=== PATIENT | female | born 1940 | race Hispanic/Latino ===

== ENCOUNTER 2018-10-17 10:50 | Emergency (ER) | payer MEDICARE ==
[2018-10-17] MEDS ORDERED: BOOSTRIX IM ONE (11:06)
[2018-10-17] MEDS ORDERED: TYLENOL PO ONE (11:06)
--- NOTE | 2018-10-17 11:07 | Emergency Department Report ---
ED Fall HPI - General Chief Complaint: Fall Stated Complaint: FALL Time Seen by Provider: 10/17/18 10:59 Source: patient, family, EMS (ems notes not available at time of chart dictation) Mode of arrival: Stretcher Limitations: Physical Limitation - History of Present Illness Initial Comments: This is a 78-year-old female, right-hand dominant, who presents to the emergency room after mechanical fall. She slipped, and landed on her nose, and twisted her left elbow, left bicep. She has a nasal abrasion, but otherwise no other supraclavicular injuries. She denies midline neck pain, midline chest pain, abdominal pain, weakness, numbness, shortness of breath. She does not believe she lost consciousness. She has left bicep pain, which is sharp and achy, increases with palpation, decreases with rest, does not radiate anywhere. MD Complaint: fall -: Sudden Fall From: standing When Fall Occurred: 1-3 hours SHOPPER Fall Witnessed: yes, by family Place Fall Occurred: home Loss of Consciousness: none Prolonged Down Time?: no Symptoms Prior to Fall: none Location: head, other Location - Extremities: Left: Arm Severity: moderate Quality: other Context: tripped/slipped Associated Symptoms: other (as per history of present illness). denies: neck pain, numbness, weakness, chest paint, shortness of breath, abdominal pain, hematuria, unable to walk, lightheaded, vertigo, confusion - Related Data Previous Rx's Medication Instructions Recorded Last Taken Type Acetaminophen [Tylenol] 325 mg PO Q4HR PRN #30 capsule 10/17/18 Unknown Rx Bacitracin Zinc Oint [Antibiotic 1 applicatio TP BID #1 tube 10/17/18 Unknown Rx Oint] Ibuprofen [Motrin] 400 mg PO Q8H PRN #30 tablet 10/17/18 Unknown Rx Allergies Allergy/AdvReac Type Severity Reaction Status Date / Time morphine Allergy Unknown Verified 10/17/18 11:17 ED Review of Systems ROS: Stated complaint: FALL Other details as noted in HPI Constitutional: denies: fever Eyes: denies: vision change ENT: other (nasal abrasion). denies: ear pain Respiratory: denies: cough Cardiovascular: denies: chest pain, palpitations Gastrointestinal: denies: abdominal pain, nausea, vomiting Genitourinary: denies: urgency, dysuria Musculoskeletal: arthralgia, myalgia. denies: back pain Skin: lesions Neurological: denies: weakness, numbness, paresthesias, confusion Psychiatric: denies: anxiety ED Past Medical Hx - Medications Home Medications: Home Medications Medication Instructions Recorded Confirmed Last Taken Type Acetaminophen [Tylenol] 325 mg PO Q4HR PRN #30 capsule 10/17/18 Unknown Rx Bacitracin Zinc Oint [Antibiotic 1 applicatio TP BID #1 tube 10/17/18 Unknown Rx Oint] Ibuprofen [Motrin] 400 mg PO Q8H PRN #30 tablet 10/17/18 Unknown Rx ED Physical Exam - General Limitations: No Limitations General appearance: alert, anxious - Head Head exam: Present: normocephalic, other (there is a superficial nasal abrasion, avulsion noted, with no streaking or pus or crepitus. There is no nasal septal hematoma. There is no hemotympanum) - Eye Eye exam: Present: normal appearance, EOMI (pupil status post bilateral cataract repair.), other (visual acuity intact to finger counting, color perception, reading at a close distance) - ENT ENT exam: Present: normal orophraynx, mucous membranes moist, TM's normal bila terally, normal external ear exam, other (there is no mastoid tenderness) - Neck Neck exam: Present: normal inspection, full ROM. Absent: tenderness, meningismu s - Respiratory Respiratory exam: Present: normal lung sounds bilaterally. Absent: respiratory distress, wheezes, rales, rhonchi, stridor, chest wall tenderness, accessory muscle use, decreased breath sounds, prolonged expiratory - Cardiovascular Cardiovascular Exam: Present: regular rate, normal rhythm, normal heart sounds. Absent: bradycardia, tachycardia, irregular rhythm, systolic murmur, diastolic murmur, rubs, gallop - GI/Abdominal GI/Abdominal exam: Present: soft. Absent: distended, tenderness, guarding, rebound, rigid, pulsatile mass - Extremities Exam Extremities exam: Present: normal inspection, full ROM, tenderness (there is left bicep tenderness.), other (2+ pulses noted in the bilateral upper, lower extremities. Compartments soft. No long bony tenderness. The pelvis is stable.). Absent: pedal edema, joint swelling, calf tenderness - Back Exam Back exam: Present: normal inspection, full ROM. Absent: tenderness, CVA tenderness (R), paraspinal tenderness, vertebral tenderness - Neurological Exam Neurological exam: Present: alert, oriented X3, other (Extraocular movements intact. Tongue midline. No facial droop. Facial sensation intact to light touch in the V1, V2, V3 distribution bilaterally. 5 and 5 strength in 4 extremities.. Sensation is intact to light touch in 4 extremities.). Absent: motor sensory deficit - Psychiatric Psychiatric exam: Present: normal affect, normal mood, anxious - Skin Skin exam: Present: warm, abrasion ED Course Vital Signs 10/17/18 10/17/18 10/17/18 10:50 10:57 11:00 Temperature 97.7 F Pulse Rate 92 H Respiratory 18 Rate Blood Pressure 106/52 106/52 106/52 O2 Sat by Pulse 97 97 Oximetry 10/17/18 10/17/18 10/17/18 12:10 12:15 12:27 Temperature Pulse Rate Respiratory 18 Rate Blood Pressure 106/52 121/67 O2 Sat by Pulse 98 96 Oximetry 10/17/18 10/17/18 10/17/18 12:30 12:45 13:00 Temperature Pulse Rate Respiratory 18 Rate Blood Pressure 119/69 123/64 141/71 O2 Sat by Pulse 98 97 97 Oximetry 10/17/18 10/17/18 13:15 13:30 Temperature Pulse Rate Respiratory Rate Blood Pressure 137/67 132/59 O2 Sat by Pulse 96 Oximetry - Reevaluation(s) Reevaluation #1: 10/17/18 13:08 Differential diagnosis, including but not limited to: Superficial abrasion, skin avulsion, intracranial injury, cervical spine injury, facial injury, muscular sprain, strain Assessment and plan: 78-year-old female status post mechanical fall. The patient is afebrile, clinically sober, with a [place] Coma Scale of 15. Noncontrast CT scan of the brain, cervical spine negative for acute disease. CT scan of the facial bones pending. X-ray of the elbow, humerus, shoulder negative for acute disease, there may be s ome arthritic changes in the left shoulder. Patient has some muscular tenderness in the left bicep, without evidence of compartment syndrome, without evidence of distal neurovascular compromise. Thumb opposition, wrist range of motion intact in the bilateral upper extremities, sensation intact to light touch in the bilateral deltoid, median, radial, ulnar distribution. Left upper extremity will be placed in a sling, patient's pain will be treated with acetaminophen at her request, and nasal avulsion will be cleaned and dressed by nursing staff. Reevaluation #2: 10/17/18 13:[address] scan of the facial bones negative for acute disease. X-ray of the shoulder demonstrates chronic-appearing rotator cuff injury, patient corroborates a chronic rotator cuff injury which is not acutely asymptomatic. She was informed about possible avulsion fracture in The elbow, placed in a sling, and instructed to follow up with outpatient orthopedics. The patient is smiling, in good spirits, and in no acute distress at this time ED Medical Decision Making - Lab Data Vital Signs 10/17/18 10/17/18 10/17/18 10:50 10:57 11:00 Temperature 97.7 F Pulse Rate 92 H Respiratory 18 Rate Blood Pressure 106/52 106/52 106/52 O2 Sat by Pulse 97 97 Oximetry 10/17/18 10/17/18 10/17/18 12:10 12:15 12:27 Temperature Pulse Rate Respiratory 18 Rate Blood Pressure 106/52 121/67 O2 Sat by Pulse 98 96 Oximetry 10/17/18 10/17/18 12:30 12:45 Temperature Pulse Rate Respiratory Rate Blood Pressure 119/69 123/64 O2 Sat by Pulse 96 97 Oximetry - Radiology Data Radiology results: report reviewed, image reviewed interpreted by me: X-ray of the left elbow, left humerus, left shoulder negative for acute traumatic disease. There are left proximal humerus arthritic changes noted. Noncontrast CT scan of the brain, cervical spine negative for acute disease. CT scan of the facial bones: Critical care attestation.: If time is entered above; I have spent that time in minutes in the direct care of this critically ill patient, excluding procedure time. ED Disposition Clinical Impression: Fall, Skin avulsion Disposition: [id number] TO HOME OR SELFCARE Is pt being admited?: No Does the pt Need Aspirin: No Condition: Good Instructions: Skin Avulsion (ED), Fall Prevention (ED) Additional Instructions: Rest, and avoid heavy lifting. Avoid strenuous physical activities. Take pain medication as needed/directed. Pain typically gets worse before he gets better after mechanical fall. Please wash facial abrasion with gentle soap and water at least once every 24 hours. Keep the left arm in a sling, and begin activities, range of motion is physically tolerated. He should probably resolve within the next 7-10 days. However, if left upper extremity pain persists for greater than 7-10 days, please follow up with a primary care doctor or orthopedic physician within the next 3 weeks. Return to the emergency room right away with new pain, worsened pain, migration of pain, projectile vomiting, change in mental status, confusion, inability to speak, inability to breathe, it, worsening or different symptoms. Prescriptions: Acetaminophen [Tylenol] 325 mg PO Q4HR PRN #30 capsule PRN Reason: Pain , Severe (7-10) Bacitracin Zinc Oint [Antibiotic Oint] 1 applicatio TP BID #1 tube Ibuprofen [Motrin] 400 mg PO Q8H PRN #30 tablet PRN Reason: Pain , Severe (7-10) Referrals: [facility] [Provider Group] - 7-10 days [facility] [Provider Group] - as needed
--- NOTE | 2018-10-17 12:55 | Cat Scan Report ---
FINAL REPORT EXAM: CT HEAD/BRAIN WO CON HISTORY: slip and fall, facial pain TECHNIQUE: CT of the head was performed. No intravenous contrast was administered. PRIORS: None. FINDINGS: There is no evidence of intracranial hemorrhage. There is no edema, mass effect or midline shift. There are no abnormal extra-axial fluid collections. The ventricles are appropriate for brain volume. There is no skull fracture seen. The visualized aspects of the sinuses are clear. IMPRESSION: There is no acute intracranial abnormality identified.
--- NOTE | 2018-10-17 13:02 | Cat Scan Report ---
FINAL REPORT EXAM: CT CERVICAL SPINE WO CON HISTORY: slip and fall, facial pain TECHNIQUE: A noncontrast CT of the cervical spine was performed. Coronal and sagittal reformatted i mages were obtained. PRIORS: None. FINDINGS: There is no cervical spine fracture seen. Vertebral heights and alignment are maintained. There is C5 -6 moderate to marked disc space narrowing with prominent endplate spurring. Disc osteophyte complex causes mild spinal stenosis and [id number] right lateral recess effacement and right neuroforam inal narrowing. There is also degenerative disc disease at C6-7 but no significant spinal stenosis. IMPRESSION: There is no evidence of cervical spine fracture or subluxation. Lower cervical degenerative disc disease with findings as described above.
--- NOTE | 2018-10-17 13:05 | Cat Scan Report ---
FINAL REPORT EXAM: CT FACIAL BONES WO CON HISTORY: slip and fall, facial pain TECHNIQUE: Axial images and coronal and sagittal reformatted images of the face/facial bones were ob tained. PRIORS: None. FINDINGS: The paranasal sinuses are clear. There is no facial bone fracture seen. IMPRESSION: There is no acute abnormality identified.
[2018-10-17] MEDS ORDERED: TRIPLE ANTIBIOTIC TP ONE (13:31)
--- NOTE | 2018-10-17 13:41 | XRay Report ---
FINAL REPORT EXAM: XR SHOULDER 2+V LT HISTORY: slip and fall, left arm pain TECHNIQUE: Three views of the left shoulder PRIORS: None. FINDINGS: There is no evidence of acute fracture. There is no evidence of joint dislocation. The humeral head is high riding with narrowed subacromial space. This appearance suggests chronic rot ator cuff tear. IMPRESSION: High riding humeral head and narrowing of the subacromial space. This appearance its is suggestive of chronic rotator cuff tear. No acute abnormality seen.
--- NOTE | 2018-10-17 13:42 | XRay Report ---
FINAL REPORT EXAM: XR HUMERUS 2+V LT HISTORY: slip and fall, left arm pain TECHNIQUE: Left humerus, two views PRIORS: None. FINDINGS: There is no fracture identified. There is no dislocation at the shoulder. There is some spurring at t he glenohumeral joint. IMPRESSION: There is no acute abnormality identified.
--- NOTE | 2018-10-17 13:44 | XRay Report ---
FINAL REPORT EXAM: XR ELBOW 2V LT HISTORY: slip and fall, left arm pain TECHNIQUE: Three views of the left elbow PRIORS: None. FINDINGS: There is a tiny calcification adjacent to lateral epicondyle. Tiny avulsion injury not excluded altho ugh this may just relate to old injury or calcific tendinitis. There is no evidence of joint dislocation. There is no elbow fat pad elevation seen. For IMPRESSION: Small calcification adjacent to lateral epicondyle. This could be a small avulsion injury of unknown age or may relate to calcific tendinitis. Correlate for tenderness.
[2018-10-18 13:56] VITALS: BP 132/59
== END 2018-10-17 14:10 | disposition home or self-care (01) ==
LOC: ED 10:50
DX: S00.31XA Abrasion of nose, initial encounter (principal); M25.522 Pain in left elbow; M25.512 Pain in left shoulder; R51 Headache; Z88.5 Allergy status to narcotic agent; W01.198A Fall on same level from slipping, tripping and stumbling with subsequent striking against other object, initial encounter; Y93.89 Activity, other specified; Y92.89 Other specified places as the place of occurrence of the external cause; Y99.8 Other external cause status
CPT/HCPCS: 70450; 70486; 72125; 90471; 90715; 99285; A6250